=== PATIENT | female | born 1960 | race Caucasian/White ===

== ENCOUNTER → 2016-11-21 | Outpatient (CLI) | payer OTHER | LOC: RAD 11:08 | DX: Z12.31 Encounter for screening mammogram for malignant neoplasm of breast (principal) ==

== ENCOUNTER 2017-07-03 10:48 | Emergency (ER) | payer OTHER, MEDICARE ==
[~2017-07-03] VITALS: Ht 170.2 cm; Wt 77.1 kg
[2017-07-03] MEDS ORDERED: PROZAC20 MG PO (11:08)
[2017-07-03] MEDS ORDERED: CLONAZEPAM 1 MG1 M1 PO (11:08)
[2017-07-03] MEDS ORDERED: ASPIRIN325 PO (11:08)
[2017-07-03] MEDS ORDERED: HYDROCHLOROTHIA25 M2 PO (11:09)
[2017-07-03] MEDS ORDERED: INVOKANA100 MG PO (11:09)
[2017-07-03] MEDS ORDERED: METFORMIN HCL500 MG PO (11:09)
[2017-07-03] MEDS ORDERED: COZAAR 25 MG TA25 M1 PO (11:09)
[2017-07-03] MEDS ORDERED: CARDIZEM CD240 MG PO (11:10)
[2017-07-03] MEDS ORDERED: GLIPIZIDE5 MG PO (11:10)
[2017-07-03] MEDS ORDERED: ASPERCREME1 EACH TOP (12:16)
[2017-07-03] MEDS ORDERED: ULTRAM 50MG TAB50 MG PO (12:16)
== END 2017-07-03 12:28 | disposition home or self-care (01) ==
LOC: ER 10:48
DX: S20.211A Contusion of right front wall of thorax, initial encounter (principal); I10 Essential (primary) hypertension; E11.9 Type 2 diabetes mellitus without complications; Z90.710 Acquired absence of both cervix and uterus; Z88.2 Allergy status to sulfonamides; Z88.5 Allergy status to narcotic agent; W18.39XA Other fall on same level, initial encounter; Y93.89 Activity, other specified; Y92.89 Other specified places as the place of occurrence of the external cause; Y99.8 Other external cause status